=== PATIENT | female | born 1985 | race American Indian/Alaskan Native ===

== ENCOUNTER 2017-12-19 01:53 | Emergency (ER) | payer MEDICAID ==
[2017-12-19 02:06] VITALS: BP 117/71
[2017-12-19] MEDS ORDERED: Nitrofurantoin Monohydrate/Macrocrystalline 100 MG Cap PO ONE (02:16)
[2017-12-19] MEDS ORDERED: Phenazopyridine 95 MG Tab PO ONE (02:16)
--- NOTE | 2017-12-19 02:20 | EDM.PDOC ---
ED HPI GENERAL MEDICAL PROBLEM - General Chief Complaint: Genitourinary Problem Stated Complaint: BLADDER INFECTION [id number] Time Seen by Provider: 12/19/17 02:17 Source of Information: Reports: Patient History Limitations: Reports: No Limitations - History of Present Illness INITIAL COMMENTS - FREE TEXT/NARRATIVE: c/o recurrent UTI Sx today. 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 States her baby was born in April and has G6PD and knows baby needs to stay away from sulfa but unsure of other medications since she is breast feeding. 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" Immunologic History: Reports: None Oncologic (Cancer) History: Reports: None Dermatologic History: Reports: None - Infectious Disease History Infectious Disease History: Reports: None - Past Surgical History Head Surgeries/Procedures: Reports: None Social & Family History - Family History Family Medical History: Noncontributory - Tobacco Use Smoking Status *Q: Never Smoker Second Hand Smoke Exposure: No - Caffeine Use Caffeine Use: Reports: Soda - Recreational Drug Use Recreational Drug Use: No ED ROS GENERAL - Review of Systems Review Of Systems: ROS reveals no pertinent complaints other than HPI. ED EXAM, RENAL/ - Physical Exam Exam: See Below Exam Limited By: No Limitations General Appearance: Alert, WD/WN, Mild Distress, Other (discomfort) Ears: Hearing Grossly Normal Throat/Mouth: Normal Voice, No Airway Compromise Head: Atraumatic Neck: Non-Tender, Full Range of Motion Respiratory/Chest: No Respiratory Distress Cardiovascular: Regular Rate, Rhythm GI/Abdominal: Soft, Non-Tender, Other (suprapubic discomfort). No: Distended, Guarding, Rigid, Rebound, Tender Back Exam: No: CVA Tenderness (L), CVA Tenderness (R) Neurological: Alert, Oriented, Normal Cognition, Normal Gait, No Motor/Sensory Deficits Psychiatric: Normal Affect, Normal Mood Skin Exam: Warm, Dry, Normal Color Lymphatic: No Adenopathy Course - Vital Signs Last Recorded V/S: Last Vital Signs Temp 36.4 C 12/19/17 02:05 Pulse 94 12/19/17 02:05 Resp 16 12/19/17 02:05 BP 117/71 12/19/17 02:05 Pulse Ox 99 12/19/17 02:05 - Orders/Labs/Meds Labs: Laboratory Tests 12/19/17 Range/Units 01:55 Urine Color Yellow (YELLOW) Urine Appearance Turbid (CLEAR) Urine pH 6.0 (5.0-9.0) Ur Specific [place] 1.010 (1.005-1.030) Urine Protein 30 H (NEGATIVE) Urine Glucose (UA) Negative (NEGATIVE) Urine Ketones Negative (NEGATIVE) Urine Occult Blood Large H (NEGATIVE) Urine Nitrite Negative (NEGATIVE) Urine Bilirubin Negative (NEGATIVE) Urine Urobilinogen 0.2 (0.2-1.0) mg/dL Ur Leukocyte Esterase Moderate H (NEGATIVE) Urine RBC >100 H /HPF Urine WBC >100 H (0-5/HPF) /HPF Ur Epithelial Cells Moderate H /HPF Urine Bacteria Moderate H (0-FEW/HPF) /HPF Meds: Medications Discontinued Medications Generic Name Dose Route Start Last Admin Trade Name Freq PRN Reason Stop Dose Admin Nitrofurantoin Macrocrystals 100 mg 12/19/17 02:16 Macrobid PO 12/19/17 02:17 ONETIME ONE Phenazopyridine HCl 95 mg 12/19/17 02:16 Urinary Pain Relief PO 12/19/17 02:17 ONETIME ONE Departure - Departure Time of Disposition: 02:19 Disposition: Home, Self-Care 01 Condition: Good Clinical Impression: UTI, Urinary tract infectious disease - Discharge Information Instructions: Urinary Tract Infection, Adult, [id number] Additional Instructions: 1) rest 2) drink lots of liquids 3) recheck as needed rx given; macrobid 100mg bid x 20 pyridium 100mg tid x 12
== END 2017-12-19 02:23 | disposition home or self-care (01) ==
LOC: DL.ED 01:53
DX: N39.0 Urinary tract infection, site not specified (principal); Z88.2 Allergy status to sulfonamides
CPT/HCPCS: 81001; 99283; A9270

== ENCOUNTER 2018-12-14 13:55 | Emergency (ER) | payer MEDICAID ==
[2018-12-14 14:20] VITALS: BP 132/62
== END 2018-12-14 17:14 | disposition left against medical advice (07) ==
LOC: DL.ED 13:55
DX: Z53.21 Procedure and treatment not carried out due to patient leaving prior to being seen by health care provider (principal)
CPT/HCPCS: 99283

== ENCOUNTER 2018-12-15 12:22 | Emergency (ER) | payer MEDICAID ==
[2018-12-15 13:12] VITALS: BP 133/64
[2018-12-15] MEDS ORDERED: Ketorolac 30 MG/ML SDV IVPUSH ONE (13:29)
[2018-12-15] MEDS ORDERED: Metoclopramide 10 MG/2 ML SDV IVPUSH ONE (13:29)
[2018-12-15] MEDS ORDERED: Lactated Ringers 1,000 ML IV ONE (13:29)
[2018-12-15] MEDS ORDERED: diphenhydrAMINE 50 MG/ML SDV IVPUSH ONE (13:29)
--- NOTE | 2018-12-15 13:29 | EDM.PDOC ---
ED HPI GENERAL MEDICAL PROBLEM - General Chief Complaint: Headache Stated Complaint: HEADACHE X 1 WEEK Time Seen by Provider: 12/15/18 13:27 Source of Information: Reports: Patient History Limitations: Reports: No Limitations - History of Present Illness INITIAL COMMENTS - FREE TEXT/NARRATIVE: Patient comes emergency Department today with complaints of a headache for the last week. She typically gets about 1 headache a week. This one has lasted for about a week. It is rather typical for her very bad migraines. She has not fallen or hit her head. She does have some lightheadedness with standing but no vertigo. No changes in her visual acuity. She does have photophobia and phonophobia. No nausea no vomiting. No fever no chills. No neck pain. Headache is a throbbing sensation throughout the tentorium. No paresthesias of the upper lower extremities. No change in the functionality of her upper or lower extremities. - Related Data Allergies Allergy/AdvReac Type Severity Reaction Status Date / Time Sulfa (Sulfonamide Allergy Rash Verified 12/15/18 13:02 Antibiotics) Home Meds: Home Meds . 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 States her baby was born in April and has G6PD and knows baby needs to stay away from sulfa but unsure of other medications since she is breast feeding. 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 - Physical Exam Exam: See Below Exam Limited By: No Limitations General Appearance: Alert, WD/WN, No Apparent Distress Eye Exam: Bilateral Eye: EOMI, Normal Inspection, PERRL Ears: Normal External Exam, Normal TMs Nose: Normal Inspection, Normal Mucosa Throat/Mouth: Normal Inspection, Normal Lips, Normal Teeth, Normal Oropharynx Head Exam: Atraumatic, Normocephalic Neck: Normal Inspection, Supple, Non-Tender Respiratory/Chest: No Respiratory Distress, Lungs Clear, Normal Breath Sounds, No Accessory Muscle Use Cardiovascular: Normal Peripheral Pulses, Regular Rate, Rhythm GI/Abdominal: Normal Bowel Sounds, Soft, Non-Tender, No Organomegaly Neuro Exam (Abbreviated): Alert, Oriented, CN II-XII Intact, Normal Cognition, Normal Gait, Normal Reflexes, No Motor/Sensory Deficits DTR: 2+: Patella (R), Patella (L), Achilles (R), Achilles (L) Back Exam: Normal Inspection, Full Range of Motion. No: CVA Tenderness (L), CVA Tenderness (R) Extremities: Normal Inspection, Normal Range of Motion, No Pedal Edema Psychiatric: Normal Affect, Normal Mood Skin Exam: Warm, Dry, Intact, Normal Color, No Rash Course - Vital Signs Last Recorded V/S: Last Vital Signs Temp 37.3 C 12/15/18 12:58 Pulse 100 12/15/18 12:58 Resp 16 12/15/18 12:58 BP 133/64 12/15/18 12:58 Pulse Ox 99 12/15/18 12:58 - Orders/Labs/Meds Meds: Medications Discontinued Medications Generic Name Dose Route Start Last Admin Trade Name Nakul PRN Reason Stop Dose Admin Diphenhydramine HCl 50 mg 12/15/18 13:29 12/15/18 14:10 Benadryl IVPUSH 12/15/18 13:30 50 mg ONETIME ONE Administration Lactated Ringer's 1,000 mls @ 1,000 mls/hr 12/15/18 13:29 12/15/18 14:09 Ringers, Lactated IV 12/15/18 14:28 1,000 mls/hr .BOLUS ONE Administration Ketorolac Tromethamine 30 mg 12/15/18 13:29 12/15/18 14:15 Toradol IVPUSH 12/15/18 13:30 30 mg ONETIME ONE Administration Metoclopramide HCl 10 mg 12/15/18 13:29 12/15/18 14:18 Reglan IVPUSH 12/15/18 13:30 10 mg ONETIME ONE Administration - Re-Assessments/Exams Free Text/Narrative Re-Assessment/Exam: 12/15/18 IV LR 1 liter wide open Benadryl ketorolac reglan. After the above therapy the patient's headache was about 95% improved. The rest of her symptomology is resolved.This is the best that she has felt in weeks. I did talk to her about the importance of preventing medication overuse headaches and if she is having this many headaches a month she really should consider some prophylactic therapy to be initiated by her primary care management.She was comfortable with this plan and her questions are answered. Departure - Departure Time of Disposition: 15:43 Disposition: Home, Self-Care 01 Clinical Impression: Migraine - Discharge Information Instructions: Migraine Headache, [id number], Recurrent Migraine Headache, [id number] Referrals: Jose Ramires MD [Primary Care Provider] - Forms: ED Department Discharge Additional Instructions: Go home rest as much as possible and decrease brain stimulation. No phones TV Ipads or tablets. Lots of fluids. Try benadryl at home to help with headaches as well. Return to the ED if new or worsening symptoms. Follow up with PCP in the next 4-6 days if continued problems sooner if worse. - Assessment/Plan Assessment:: Migraine Plan: Go home rest as much as possible and decrease brain stimulation. No phones TV Ipads or tablets. Lots of fluids. Try benadryl at home to help with headaches as well. Return to the ED if new or worsening symptoms. Follow up with PCP in the next 4-6 days if continued problems sooner if worse.
== END 2018-12-15 16:26 | disposition home or self-care (01) ==
LOC: DL.ED 12:22
DX: G43.909 Migraine, unspecified, not intractable, without status migrainosus (principal); Z88.2 Allergy status to sulfonamides
CPT/HCPCS: 96361; 96374; 96375; 99283-25; J1200; J1885; J2765; J7120

== ENCOUNTER 2019-11-01 00:55 | Emergency (ER) | payer MEDICAID ==
--- NOTE | 2019-11-01 01:46 | EDM.PDOC ---
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 Sore scratchy throat. O fever, chills. Has not taken anything for pain. Unable to determine if symptoms have improved or worsened since onset. Reports completing antinbiotic 5 days prior for sinus infection. Has had cough x 1 year since bronchitis episode. - Related Data Allergies Allergy/AdvReac Type Severity Reaction Status Date / Time Sulfa (Sulfonamide Allergy Rash Verified 12/15/18 13:02 Antibiotics) Home Meds: Home Meds . [No Known Home Meds] 12/15/18 [History] Past Medical History - Past Health History Medical/Surgical History: Denies Medical/Surgical History Cardiovascular History: Reports: None Respiratory History: Reports: None Gastrointestinal History: Reports: None Genitourinary History: Reports: UTI, Recurrent DIRECTOR OUTPATIENT SERVICES History: Reports: Other DIRECTOR OUTPATIENT SERVICES History: Breast feeding. States her baby was born in April and has G6PD and knows baby needs to stay away from sulfa but unsure of other medications since she is breast feeding. 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 ED EXAM, GENERAL - Physical Exam Exam: See Below Exam Limited By: No Limitations General Appearance: Alert, No Apparent Distress Eye Exam: Bilateral Eye: EOMI Ears: Normal External Exam, Normal TMs Nose: Normal Inspection Throat/Mouth: Normal Inspection Head: Atraumatic, Normocephalic Neck: Normal Inspection Respiratory/Chest: No Respiratory Distress, Lungs Clear, Normal Breath Sounds, Other (no cough). No: Crackles, Rales, Rhonchi, Wheezing Cardiovascular: Normal Peripheral Pulses, Regular Rate, Rhythm, No Edema GI/Abdominal: Normal Bowel Sounds Extremities: Normal Inspection, Normal Range of Motion Neurological: Alert, Oriented, Normal Cognition Psychiatric: Normal Affect Skin Exam: Warm, Dry, Intact, Normal Color Course - Orders/Labs/Meds Labs: Laboratory Tests 11/01/19 11/01/19 11/01/19 Range/Units 01:40 01:40 01:40 WBC 10.6 H (5.0-10.0) 10^3/uL RBC 3.49 L (4.2-5.4) 10^6/uL Hgb 11.8 L (12.0-16.0) g/dL Hct 36.2 L (37.0-47.0) % MCV 103.7 H (80-100) fL MCH 33.8 (27.0-34.0) pg MCHC 32.6 L (33.0-35.0) g/dL Plt Count 268 (150-450) 10^3/uL Neut % (Auto) 62.4 (42.2-75.2) % Lymph % (Auto) 27.5 (20.5-50.1) % [place] % (Auto) 7.6 (2-8) % Eos % (Auto) 2.0 (1.0-3.0) % Baso % (Auto) 0.5 (0.0-1.0) % D-Dimer, Quantitative 110 (0-400) ng/mL Sodium 140 (135-145) mmol/L Potassium 4.0 (3.6-5.0) mmol/L Chloride 108 (101-111) mmol/L Carbon Dioxide 26.0 (21.0-31.0) mmol/L Anion Gap 10.0 BUN 15 (7-18) mg/dL Creatinine 0.8 (0.6-1.3) mg/dL Est Cr Clr Drug Dosing TNP Estimated GFR (MDRD) > 60 BUN/Creatinine Ratio 18.75 Glucose 95 (74-105) mg/dL Calcium 9.1 (8.4-10.2) mg/dl Total Bilirubin 1.2 H (0.2-1.0) mg/dL AST 23 (10-42) IU/L ALT 28 (10-60) IU/L Alkaline Phosphatase 48 (42-121) IU/L Total Protein 7.1 (6.7-8.2) g/dl Albumin 4.1 (3.2-5.5) g/dl Globulin 3.0 Albumin/Globulin Ratio 1.37 Amylase 49 (28-100) U/L Lipase 31 (22-51) U/L Departure - Departure Time of Disposition: 02:53 Disposition: Home, Self-Care 01 Condition: Good Clinical Impression: Bronchitis - Discharge Information *PRESCRIPTION DRUG MONITORING PROGRAM REVIEWED*: No *COPY OF PRESCRIPTION DRUG MONITORING REPORT IN PATIENT ALLEY: No Instructions: Upper Respiratory Infection, Adult, [id number], Gastroesophageal Reflux Disease, Adult, [id number] Referrals: PCP,None [Primary Care Provider] - Additional Instructions: alternate tylenol and ibuprofen every 4 hours as needed for discomfort bland diet increase fluids humidification follow up as needed Sepsis Event Note - Focused Exam Date Exam was Performed: 11/01/19 Time Exam was Performed: 02:53
[2019-11-01 02:18] LABS: SODIUM,NA 140 mmol/L (135-145)
[2019-11-01 02:19] LABS: CHLORIDE,CL 108 mmol/L (101-111)
== END 2019-11-01 02:49 | disposition home or self-care (01) ==
LOC: DL.ED 00:55
DX: J40 Bronchitis, not specified as acute or chronic (principal); Z88.2 Allergy status to sulfonamides
CPT/HCPCS: 36415; 80053; 82150; 83690; 85025; 85379; 87804; 99284

== ENCOUNTER 2021-04-04 10:25 | Emergency (ER) | payer MEDICAID, OTHER ==
[2021-04-04 10:40] VITALS: BP 130/68; PULSE 88
--- NOTE | 2021-04-04 10:42 | EDM.PDOC ---
ED HPI GENERAL MEDICAL PROBLEM - General Chief Complaint: Genitourinary Problem Stated Complaint: [id number] UTI Time Seen by Provider: 04/04/21 10:38 Source of Information: Reports: Patient History Limitations: Reports: No Limitations - History of Present Illness INITIAL COMMENTS - FREE TEXT/NARRATIVE: Patient is an unfortunate 35-year-old female who presents emerged from today with complaint of dysuria frequency urgency. Patient reports symptoms started last night and have continued throughout the day. She reports that she tried to make a appointment at the clinic was unsuccessful so she presents emergency department for further evaluation. She said no fever no chills no nausea no vomiting no vaginal discharge no foul odors. Patient reports that she has had multiple similar episodes in the past where she has had UTIs - Related Data Allergies Allergy/AdvReac Type Severity Reaction Status Date / Time Sulfa (Sulfonamide Allergy Rash Verified 12/15/18 13:02 Antibiotics) Home Meds: Home Meds Albuterol Sulfate 1 ampule INH Q4HR PRN 04/04/21 [History] Phenazopyridine HCl [Pyridium] 200 mg PO TID #9 tablet 04/04/21 [Rx] cephALEXin [Keflex] 500 mg PO QID #28 cap 04/04/21 [Rx] Past Medical History - Past Health History Medical/Surgical History: Denies Medical/Surgical History Cardiovascular History: Reports: None Respiratory History: Reports: None Gastrointestinal History: Reports: None Genitourinary History: Reports: UTI, Recurrent 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 States her baby was born in April and has G6PD and knows baby needs to stay away from sulfa but unsure of other medications since she is breast feeding. 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 Constitutional: Denies: Fever, Chills : Reports: Dysuria, Frequency, Urgency ED EXAM, RENAL/ - Physical Exam Exam: See Below Exam Limited By: No Limitations General Appearance: Alert, WD/WN, Mild Distress (Mild) Head: Atraumatic, Normocephalic Neck: Normal Inspection, Supple, Non-Tender, Full Range of Motion Respiratory/Chest: No Respiratory Distress, Lungs Clear, Normal Breath Sounds, No Accessory Muscle Use, Chest Non-Tender Cardiovascular: Normal Peripheral Pulses, Regular Rate, Rhythm, No Edema, No Gallop, No JVD, No Murmur, No Rub GI/Abdominal: Normal Bowel Sounds, Soft, Non-Tender, No Organomegaly, No Distention, No Abnormal Bruit, No Mass Back Exam: Normal Inspection, Full Range of Motion, NT Extremities: Normal Inspection, Normal Range of Motion, Non-Tender, Normal Capillary Refill, No Pedal Edema Neurological: Alert, Oriented, CN II-XII Intact Skin Exam: Warm, Dry, No Rash Course - Orders/Labs/Meds Orders: Active Orders 24 hr Category Date Time Status UA RFX AMY AND CULT IF INDIC [URIN] Stat Lab 04/04/21 10:37 Ordered Departure - Departure Time of Disposition: 10:40 Disposition: Home, Self-Care 01 Condition: Good Clinical Impression: UTI, Urinary tract infectious disease - Discharge Information *PRESCRIPTION DRUG MONITORING PROGRAM REVIEWED*: No *COPY OF PRESCRIPTION DRUG MONITORING REPORT IN PATIENT ALLEY: No Prescriptions: cephALEXin [Keflex] 500 mg PO QID #28 cap Phenazopyridine HCl [Pyridium] 200 mg PO TID #9 tablet Instructions: Urinary Tract Infection, Adult Forms: ED Department Discharge Additional Instructions: Home, rest, return as needed for worsening condition - My Orders Last 24 Hours: My Active Orders 04/04/21 10:37 UA RFX AMY AND CULT IF INDIC [URIN] Stat - Assessment/Plan Last 24 Hours: My Active Orders 04/04/21 10:37 UA RFX AMY AND CULT IF INDIC [URIN] Stat
== END 2021-04-04 10:50 | disposition home or self-care (01) ==
LOC: DL.ED 10:25
DX: N39.0 Urinary tract infection, site not specified (principal); Z88.2 Allergy status to sulfonamides
CPT/HCPCS: 81001; 87086; 87088; 87186; 99283

== ENCOUNTER 2021-05-01 14:23 | Emergency (ER) | payer MEDICAID ==
[2021-05-01 14:49] VITALS: BP 128/74
[2021-05-01] MEDS ORDERED: Albuterol/Ipratropium 3.0-0.5 MG/3 ML Neb Soln NEB ONE (15:44)
[2021-05-01] MEDS ORDERED: methylPREDNISolone Sodium Succinate 125 MG/2 ML SDV IM ONE (15:44)
--- NOTE | 2021-05-01 15:55 | EDM.PDOC ---
ED HPI GENERAL MEDICAL PROBLEM - General Chief Complaint: Respiratory Problem Stated Complaint: ASTHMA / TROUBLE BREATHING Time Seen by Provider: 05/01/21 15:45 Source of Information: Reports: Patient, RN, RN Notes Reviewed History Limitations: Reports: No Limitations - History of Present Illness INITIAL COMMENTS - FREE TEXT/NARRATIVE: Isha is a 35 y/o female with a history of asthma who presents to the ED via personal vehicle with complaints of shortness of breath. The patient reports her symptoms began abruptly approximately one hour prior to her presentation to this facility while she was at work. She notes she took two puffs of her Albuterol inhaler with no alleviation in her symptoms. Additionally, she reports a chronic dry cough. She denies fever, shaking chills, sore throat, chest pain, palpitations, nausea, or vomiting. She denies tobacco, alcohol, or recreational drug use. - Related Data Allergies Allergy/AdvReac Type Severity Reaction Status Date / Time latex Allergy Rash Verified 05/01/21 15:47 Sulfa (Sulfonamide Allergy Rash Verified 05/01/21 14:49 Antibiotics) Home Meds: Home Meds Albuterol Sulfate 1 ampule INH Q4HR PRN 04/04/21 [History] Fluticasone Propionate [Flovent HFA 110 MCG] 2 inhalation IN BID 05/01/21 [History] Past Medical History - Past Health History Medical/Surgical History: Denies Medical/Surgical History HEENT History: Reports: None Cardiovascular History: Reports: None Respiratory History: Reports: Asthma Gastrointestinal History: Reports: None Genitourinary History: Reports: UTI, Recurrent 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 States her baby was born in April and has G6PD and knows baby needs to stay away from sulfa but unsure of other medications since she is breast feeding. 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 ED EXAM, GENERAL - Physical Exam Exam: See Below Exam Limited By: No Limitations General Appearance: Alert, No Apparent Distress, Obese Eye Exam: Bilateral Eye: EOMI, Normal Inspection, PERRL (3mm) Ears: Normal External Exam, Normal Canal, Hearing Grossly Normal, Normal TMs Ear Exam: Bilateral Ear: Auricle Normal, Canal Normal, TM normal Nose: Normal Inspection, Normal Mucosa, No Blood Throat/Mouth: Normal Inspection, Normal Lips, Normal Teeth, Normal Gums, Normal Oropharynx, Normal Voice, No Airway Compromise Head: Atraumatic, Normocephalic Neck: Normal Inspection, Supple, Non-Tender, Full Range of Motion. No: Lymphadenopathy (L), Lymphadenopathy (R) Respiratory/Chest: No Respiratory Distress, Lungs Clear, Normal Breath Sounds, No Accessory Muscle Use, Chest Non-Tender. No: Crackles, Rales, Rhonchi, Wheezing, Retractions, Prolonged Expiration Cardiovascular: Normal Peripheral Pulses, Regular Rate, Rhythm, No Edema, No Gallop, No JVD, No Murmur, No Rub Peripheral Pulses: 2+: Radial (L), Radial (R) GI/Abdominal: Normal Bowel Sounds, Soft, Non-Tender, No Distention, No Abnormal Bruit, No Mass, Pelvis Stable (Female) Exam: Deferred Rectal (Female) Exam: Deferred Back Exam: Normal Inspection, Full Range of Motion Extremities: Normal Inspection, Normal Range of Motion, Non-Tender, No Pedal Edema, Normal Capillary Refill Neurological: Alert, Oriented, CN II-XII Intact, Normal Cognition, Normal Gait, No Motor/Sensory Deficits Psychiatric: Normal Affect, Normal Mood Skin Exam: Warm, Dry, Intact, Normal Color, No Rash. No: Cyanosis, Jaundice, Mottled, Pallor Course - Vital Signs Last Recorded V/S: Last Vital Signs Temp 97.5 F 05/01/21 14:45 Pulse 83 05/01/21 16:09 Resp 20 05/01/21 14:45 BP 128/74 05/01/21 14:45 Pulse Ox 100 05/01/21 14:45 - Orders/Labs/Meds Orders: Active Orders 24 hr Category Date Time Status RT Aerosol Therapy [RC] ASDIRECTED Care 05/01/21 15:44 Active Meds: Medications Discontinued Medications Generic Name Dose Route Start Last Admin Trade Name Freq PRN Reason Stop Dose Admin Albuterol/Ipratropium 3 ml 05/01/21 15:44 05/01/21 16:09 Albuterol/Ipratropium 3.0-0.5 Mg/3 Ml Neb Soln NEB 05/01/21 15:45 3 ml ONETIME ONE Administration Methylprednisolone Sodium Succinate 125 mg 05/01/21 15:44 05/01/21 16:13 Methylprednisolone Sodium Succinate 125 Mg/2 Ml Sdv IM 05/01/21 15:45 125 mg ONETIME ONE Administration - Re-Assessments/Exams Free Text/Narrative Re-Assessment/Exam: 05/01/21 Findings of examination and imaging reviewed with patient. Will treat asthma exacerbation with prednisone burst. Discussed supportive cares for asthma. Red flag signs and symptoms which would warrant reevaluation reviewed. Patient verbalized understanding and agreement with the plan of care. Departure - Departure Time of Disposition: 17:04 Disposition: Home, Self-Care 01 Condition: Good Clinical Impression: Exacerbation of asthma Qualifiers: Asthma severity: mild Asthma persistence: intermittent Qualified Code(s): J 45.21 - Mild intermittent asthma with (acute) exacerbation - Discharge Information *PRESCRIPTION DRUG MONITORING PROGRAM REVIEWED*: Not Applicable *COPY OF PRESCRIPTION DRUG MONITORING REPORT IN PATIENT ALLEY: Not Applicable Instructions: Asthma, Adult Forms: ED Department Discharge Additional Instructions: Rx: prednisone 1.) Continue with previously prescribed inhalers. 2.) Take prednisone daily for five days, in the morning is the best. 3.) Follow up with your primary care provider in 3-5 days regarding today's visit. 4.) Return to the emergency department with any return of shortness of breath that does not reduce with inhaler, chest pain, fever, shaking chills, or palpitations. Sepsis Event Note (ED) - Evaluation Sepsis Screening Result: No Definite Risk - Focused Exam Vital Signs: Vital Signs Temp Pulse Resp BP Pulse Ox 05/01/21 16:09 83 05/01/21 14:45 97.5 F 92 20 128/74 100 - My Orders Last 24 Hours: My Active Orders 05/01/21 15:44 RT Aerosol Therapy [RC] ASDIRECTED - Assessment/Plan Last 24 Hours: My Active Orders 05/01/21 15:44 RT Aerosol Therapy [RC] ASDIRECTED
[2021-05-01 16:11] VITALS: PULSE 83
--- NOTE | 2021-05-01 16:52 | CR ---
EXAMINATION: Chest 1V Frontal SEX: Female AGE: 35 years CLINICAL HISTORY: 35-year-old female complaining of shortness of breath (Hx asthma). INTERPRETATION: Negative. 1. Normal cardiac silhouette (size and configuration). Don thorax unremarkable. Left-sided aortic arch. 2. No pulmonary vascular congestion, alveolar edema or dependent pleural effusion. 3. No lung mass or hilar lymphadenopathy. Normal midline tracheal bronchial airway. 4. No alveolar consolidation, air bronchograms, atelectasis/collapse, or peripheral "groundglass" interstitial densities. 5. No air trapping. No pneumothorax or pneumomediastinum. No free subdiaphragmatic air.
== END 2021-05-01 17:22 | disposition home or self-care (01) ==
LOC: DL.ED 14:23
DX: J45.21 Mild intermittent asthma with (acute) exacerbation (principal); Z91.040 Latex allergy status; Z88.2 Allergy status to sulfonamides
CPT/HCPCS: 71045; 94640; 96372; 99283; 99285; J2930; J7620-GY

== ENCOUNTER 2021-08-15 23:30 | Emergency (ER) | payer MEDICAID ==
[2021-08-15 23:43] VITALS: BP 145/85; PULSE 93
[2021-08-15] MEDS ORDERED: Lidocaine 1% 30 ML SDV INJECT ONE (23:59)
[2021-08-16] MEDS ORDERED: Mupirocin Oint 22 GM Tube TOP ONE (00:24)
[2021-08-16] MEDS ORDERED: Doxycycline Monohydrate 100 MG Cap PO ONE (00:25)
== END 2021-08-16 00:38 | disposition home or self-care (01) ==
LOC: DL.ED 23:30
DX: L03.211 Cellulitis of face (principal); L02.01 Cutaneous abscess of face; J45.909 Unspecified asthma, uncomplicated; Z91.040 Latex allergy status; Z88.2 Allergy status to sulfonamides; Z88.8 Allergy status to other drugs, medicaments and biological substances; Z79.899 Other long term (current) drug therapy
CPT/HCPCS: 10060; 87070; 87077; 87186; 99283; A9270